=== PATIENT | male | born 1990 | race Caucasian/White ===

== ENCOUNTER → 2024-06-12 13:30 | Outpatient (BNVA) | payer BC, SELFPAY | PROVIDERS: PCP Nurse Practitioner Family; Visit Provider Nurse Practitioner Family | DX: Z13.6 Encounter for screening for cardiovascular disorders (principal); Z13.29 Encounter for screening for other suspected endocrine disorder; R53.83 Other fatigue | CPT/HCPCS: 80053; 82465; 84403; 84443; 85025 ==